=== PATIENT | male | born 1980 | race Caucasian/White ===

== ENCOUNTER 2016-12-28 07:30 | Emergency (ER) | payer MEDICAID ==
[~2016-12-28] VITALS: Ht 180.3 cm; Wt 100.5 kg
[2016-12-28] MEDS ORDERED: SODIUM CHLORIDE 0.9% 1,000ML IVBOLUS ONE (08:00)
[2016-12-28] MEDS ORDERED: SODIUM CHLORIDE FLUSH 10ML SYR IVF ONE (08:00)
[2016-12-28] MEDS ORDERED: FAMOTIDINE 20 MG/2 ML IVP ONE (08:00)
[2016-12-28] MEDS ORDERED: ONDANSETRON 2MG/ML, 2ML IVPush ONE (08:00)
[2016-12-28 08:13] LABS: HEMATOCRIT 46.4 % (39.2-51.8); HEMOGLOBIN 15.9 g/dL (13.7-18.0); WHITE BLOOD COUNT 7.6 x10^3/uL (3.4-10)
[2016-12-28 08:22] LABS: BLOOD UREA NITROGEN 9 mg/dL (7-18)
[2016-12-28] MEDS ORDERED: FAMOTIDINE 20 MG/2 ML ONE (08:28)
[2016-12-28] MEDS ORDERED: ONDANSETRON 2MG/ML, 2ML ONE (08:28)
[2016-12-28 09:11] VITALS: BP 148/94
== END 2016-12-28 09:13 | disposition home or self-care (01) ==
LOC: ED 08:54
DX: K52.9 Noninfective gastroenteritis and colitis, unspecified (principal); I10 Essential (primary) hypertension
CPT/HCPCS: 36415; 80048; 82040; 85025; 96361; 96374; 96375; 99284; J2405; J7030; S0028